=== PATIENT | male | born 1945 | race Asian ===

== ENCOUNTER 2018-02-01 16:28 | Emergency (ER) | payer MEDICARE ==
[2018-02-01] MEDS: KETOROLAC 30 MG INJ IV (16:58)
== END 2018-02-01 18:33 | disposition home or self-care (01) ==
LOC: E/R 16:28
DX: M54.5 Low back pain (principal); M62.830 Muscle spasm of back; I10 Essential (primary) hypertension; E11.9 Type 2 diabetes mellitus without complications
CPT/HCPCS: 96374; 99284-25